=== PATIENT | female | born 1995 | race Caucasian/White ===

== ENCOUNTER 2019-06-07 02:17 | Emergency (ER) | payer OTHER ==
--- NOTE | 2019-06-07 02:34 | PDOC ---
History of Present Illness - General Chief Complaint: Urinary Problem Stated Complaint: URINARY PROBLEM, NAUSEA Time Seen by Provider: 06/07/19 02:33 - History of Present Illness Initial Comments: 06/07/19 03:01 24 y/o F hx of chronic interstitial cystitis presents to the ER with 5 hrs of dysuria. She has equally had increased frequency and associated lower abdominal pain. She endorses burning, nausea with no episodes of emesis. She was recently checked for STI's approximately 8 months ago and was negative for any std's at that time. She denies fevers, chills, flank pain, hematuria,vaginal discharge. She took 2 Azo pills at home with no relief. 06/07/19 03:09 06/07/19 03:39 Pt. comfortable and resting. Feeling a little bit better. Past History - Past Medical History Allergies/Adverse Reactions: Allergies Allergy/AdvReac Type Severity Reaction Status Date / Time cefaclor [From [facility]] Allergy Verified 06/07/19 02:31 Home Medications: Ambulatory Orders Bupropion HCl [Wellbutrin -] 150 mg PO DAILY 06/07/19 Escitalopram Oxalate [Lexapro -] 10 mg PO DAILY 06/07/19 Nitrofurantoin Monohyd/M-Cryst [Macrobid -] 100 mg PO BID #14 capsule 06/07/19 COPD: No Psychiatric Problems: Yes (DEPRESSION) - Psycho Social/Smoking Cessation Hx Smoking Status: No Smoking History: Never smoked Number of Cigarettes Smoked Daily: 0 Review of Systems - Review of Systems Constitutional: No: Chills, Fever HEENTM: No: Eye Pain, Blurred Vision Respiratory: No: Cough, Shortness of Breath Cardiac (ROS): No: Chest Pain, Lightheadedness ABD/GI: Yes: Nausea. No: Vomiting : Yes: Burning, Dysuria, Frequency. No: Flank Pain Musculoskeletal: No: Back Pain, Muscle Pain Integumentary: No: Bruising, Change in Color Neurological: Yes: Headache. No: Numbness Hematologic/Lymphatic: No: Anemia, Blood Clots *Physical Exam - Vital Signs Last Vital Signs Temp Pulse Resp BP Pulse Ox 97.8 F 76 18 128/82 98 06/07/19 02:29 06/07/19 02:29 06/07/19 02:29 06/07/19 02:29 06/07/19 02:29 - Physical Exam Comments: 06/07/19 03:05 PE: GENERAL: Awake, alert, and fully oriented, in no acute distress HEAD: No signs of trauma, normocephalic, atraumatic EYES: PERRLA, EOMI, sclera anicteric, conjunctiva clear ENT: Auricles normal inspection, hearing grossly normal, nares patent, oropharynx clear without exudates. Moist mucosa NECK: Normal ROM, supple, no lymphadenopathy, JVD, or masses LUNGS: No distress, speaks full sentences, clear to auscultation bilaterally HEART: Regular rate and rhythm, normal S1 and S2, no murmurs, rubs or gallops, peripheral pulses normal and equal bilaterally. ABDOMEN: Soft, nontender, normoactive bowel sounds. No guarding, no rebound. No masses, no cva tenderness. EXTREMITIES : Normal inspection, Normal range of motion, no edema. No clubbing or cyanosis NEUROLOGICAL: Cranial nerves II through XII grossly intact. Normal speech, normal gait, no focal sensorimotor deficits SKIN: Warm, Dry, normal turgor, no rashes or lesions noted ED Treatment Course - LABORATORY CBC & Chemistry Diagram: 06/07/19 03:05 06/07/19 03:05 Medical Decision Making - Medical Decision Making 06/07/19 03:05 24 y/o F no significant medical hx presents to the ER with 5 hrs of dysuria. -cbc, cmp, ua, urine culture meds: normal saline, toradol 30mg Iv push Discharge - Discharge Information Problems reviewed: Yes Clinical Impression/Diagnosis: Urinary disorder Condition: Stable Disposition: HOME - Additional Discharge Information Prescriptions: Nitrofurantoin Monohyd/M-Cryst [Macrobid -] 100 mg PO BID #14 capsule - Follow up/Referral Referrals: Marita King MD [Staff Physician] - - Patient Discharge Instructions Patient Printed Discharge Instructions: DI for Urinary Tract Infection (UTI), DI for Dysuria -- Adult Additional Instructions: Please return to the emergency department with any new or worsening symptoms or concerns. Please follow up with your primary care physician within 72 hours. Please take Macrobid twice per day for symptoms. - Post Discharge Activity Work/Back to School Note: Back to Work
[2019-06-07 02:35] VITALS: TEMP 97.8; BMI 29.2
--- NOTE | 2019-06-07 02:40 | PDOC ---
Attending Attestation - Resident Resident Name: Adry Morel - ED Attending Attestation I have performed the following: I have examined & evaluated the patient, The case was reviewed & discussed with the resident, I agree w/resident's findings & plan - HPI HPI: 06/07/19 02:57 Pt comes with her usual dysuria which she feels when she gets a UTI. She has no flank pain She has no fever or other complaints. 06/07/19 03:06 UTI like sx; dysuria 2x per hr. Pt has been having this since high school. She is sexually active LMP few days ago. 06/07/19 03:07 Pt feels nausea; so she came to the ER; she has been taking AZO, and her urine is pink/red as a result - Physicial Exam PE: 06/07/19 02:57 Pt has no fever and no abd pain. No flank pain. Minimal suprapubic pain 06/07/19 03:05 Heart and lungs normal; - Medical Decision Making 06/07/19 03:07 UA; labs; hydration; reeval 06/07/19 03:39 Pt's preg is negative; WBC normal 06/07/19 04:08 Pt has a nitrite pos UTI; she will be treated with macrobid x 7 days. Follow with urology as needed
[2019-06-07] MEDS ORDERED: SODIUM CHLORIDE 0.9% 500 ML INFUS.BAG IV ONE (02:44)
[2019-06-07] MEDS ORDERED: KETOROLAC TROMETHAMINE 30 MG/1 ML VIAL IVPUSH ONE (02:46)
[2019-06-07] MEDS ORDERED: KETOROLAC TROMETHAMINE 30 MG/1 ML VIAL ONE (03:11)
[2019-06-07 03:14] LABS: BASO % 0.5 % (0-2.0); HEMATOCRIT 37.4 % (32.4-45.2); HEMOGLOBIN 12.5 GM/dL (10.7-15.3); LYMPH % 40.1 % (8-40); MCH 30.3 pg (25.7-33.7); MCHC 33.3 g/dl (32.0-36.0); MEAN PLT VOLUME 8.7 fl (7.5-11.1); MONO % 6.5 % (3.8-10.2); NEUT % 49.9 % (42.8-82.8); PLATELET COUNT 206 K/MM3 (134-434); RBC 4.11 M/mm3 (3.60-5.2); RDW 12.9 % (11.6-15.6); WHITE BLOOD COUNT 7.3 K/mm3 (4.0-10.0)
[2019-06-07 03:40] LABS: ALBUMIN 3.5 g/dl (3.4-5.0); BILIRUBIN,TOTAL 0.2 mg/dL (0.2-1); BLOOD UREA NITROGEN 13.5 mg/dL (7-18); CALCIUM 8.7 mg/dL (8.5-10.1); CREATININE 0.8 mg/dL (0.55-1.3); POTASSIUM 3.8 mmol/L (3.5-5.1); TOT PROT 6.6 g/dl (6.4-8.2)
[2019-06-07 03:42] LABS: EPI CELLS 1.1 /HPF (0-5/HPF); HYALINE CASTS 2 /lpf (0-8); URINE APPEARANCE CLOUDY; URINE BACTERIA 24.6 /hpf (NEGATIVE); URINE BILIRUBIN 1+ (NEGATIVE); URINE COLOR ORANGE; URINE GLUCOSE (UA) NEGATIVE (NEGATIVE); URINE KETONE NEGATIVE (NEGATIVE); URINE LEUK ESTERASE 3+ (NEGATIVE); URINE NITRITE POSITIVE (NEGATIVE); URINE PROTEIN NEGATIVE (NEGATIVE); URINE RBC 4 /hpf (0-4); URINE WBC 128 /hpf (0-5)
[2019-06-07] MEDS ORDERED: NITROFURANTOIN MACROCRYSTAL 50 MG CAPSULE (FP) PO SCH (04:00)
[2019-06-07] MEDS ORDERED: NITROFURANTOIN MACROCRYSTAL 50 MG CAPSULE (FP) ONE (04:14)
[2019-06-07 04:26] VITALS: BP 121/79; PULSE 64
== END 2019-06-07 04:26 | disposition home or self-care (01) ==
LOC: JER 02:17
PROC: 3E0333Z Introduction of Anti-inflammatory into Peripheral Vein, Percutaneous Approach (ICD-10-PCS; principal; 2019-06-07)
PROC: 3E0337Z Introduction of Electrolytic and Water Balance Substance into Peripheral Vein, Percutaneous Approach (ICD-10-PCS; 2019-06-07)
DX: N39.0 Urinary tract infection, site not specified (principal); Z87.440 Personal history of urinary (tract) infections
CPT/HCPCS: 36415; 80053; 81003; 84703; 85025; 87086; 87491; 87591; 99282-25